=== PATIENT | female | born 1990 | race Caucasian/White ===

== ENCOUNTER 2017-12-27 01:00 | Emergency (ER) | payer SELFPAY ==
[~2017-12-27] VITALS: Ht 170.2 cm; Wt 59.0 kg
[2017-12-27] MEDS ORDERED: ONDANSETRON HCL 4MG/2ML VIAL IV STA (02:12)
[2017-12-27] MEDS ORDERED: SODIUM CHLORIDE 0.9% 1,000 ML IV ONE ×2 (02:12→03:14)
[2017-12-27] MEDS ORDERED: FAMOTIDINE 20MG/2ML VIAL IV STA (02:12)
[2017-12-27 02:30] LABS: BASOPHILS % 0.2 % (0.0-2.0); EOSINOPHILS % 0.1 % (0.0-5.0); HEMATOCRIT. 43.1 % (36.0-48.0); HEMOGLOBIN. 14.8 g/dL (12.0-16.0); LYMPHOCYTES % 13.7 % (20.0-50.0); MEAN CORPUSCULAR HEMOGLOBIN 31.5 pg (28.0-32.0); MEAN CORPUSCULAR VOLUME 91.6 fL (81.0-99.0); MEAN PLATELET VOLUME 7.1 fl (7.4-10.4); MONOCYTES % 4.9 % (2.0-8.0); NEUTROPHILS % 81.1 % (40.0-76.0); PLATELET 294 x1000/uL (130-400)
[2017-12-27 02:37] LABS: INR 1.1; PROTHROMBIN TIME 11.9 sec (9.4-11.6)
[2017-12-27 02:43] LABS: CHLORIDE 106 mEq/L (98-107)
[2017-12-27 02:50] LABS: HCG SCREEN NEGATIVE
[2017-12-27] MEDS ORDERED: POTASSIUM CHLORIDE 20MEQ TABLET SR PO ONE (03:15)
[2017-12-27 03:48] LABS: CLARITY URINE CLEAR (CLEAR); COLOR URINE YELLOW (YELLOW); KETONES URINE 1+ (NEGATIVE); LEUKOCYTE ESTERASE URINE NEGATIVE (NEGATIVE); NITRITE URINE NEGATIVE (NEGATIVE); OCCULT BLOOD URINE 1+ (NEGATIVE); PH URINE 7.5 (4.5-8.0); PROTEIN URINE NEGATIVE (NEGATIVE); UROBILINOGEN URINE 0.2 E.U./dL (0.2-1.0)
[2017-12-27] MEDS ORDERED: IBUPROFEN 400MG TABLET PO ONE (04:00)
[2017-12-27] MEDS ORDERED: HYDROCODONE/ACETAMINOPHEN 5/325MG TABLET PO ONE (06:00)
[2017-12-27] MEDS ORDERED: LORAZEPAM 1MG TABLET PO ONE (07:45)
[2017-12-27 10:53] VITALS: BP 113/69
== END 2017-12-27 11:26 | disposition home or self-care (01) ==
LOC: ER 01:00
DX: K29.00 Acute gastritis without bleeding (principal); E86.0 Dehydration; E87.6 Hypokalemia; K50.90 Crohn's disease, unspecified, without complications
CPT/HCPCS: 36415; 80053; 81003; 83605; 83690; 83735; 84703; 85025; 85610; 93005; 93970; 96361; 96374; 96375; 99285; J2405; J3490; J7030; Z7610